=== PATIENT | male | born 1965 | race Caucasian/White ===

== ENCOUNTER 2016-09-19 13:18 | Day surgery (SDC) | payer MEDICARE ==
[~2016-09-19 13:18] MED LIST: ACIDOPHILUS1 EAC5 PO; ACTOS; ACTOS30 MG; ADULT LOW DOSE81 MG; AMLODIPINE BESY10 M1 PO; AMLODIPINE BESY10 MG PO; AMPICILLIN IV; ARTIFICIAL TEAR15 M8 OP; ASPIRIN81 M1 PO; ATENOLOL100 MG PO; AUGMENTIN 875-1 EAC1 PO; AUGMENTIN 875-1 EAC2 PO; AUGMENTIN 875-11 TAB; AURYXIA PO; BACTRIM DS TAB1 EAC2 PO; BENICAR40 MG; CALMOSEPTINE O3.5 G1 TP; CATAPRES0.1 MG PO; CATAPRES0.2 M1 PO; CERTAVITE-ANTI1 EACH PO; COLACE100 MG PO; COREG25 M1 PO; COUMADIN5 M2 PO; CRESTOR10 MG PO; CRESTOR10 MG/TAB PO; CRESTOR5 M1 PO; CULTURELLE1 CAP PO; DEMADEX20 M1 PO; DIFLUCAN100 M1 PO; DULCOLAX10 MG/SUPP RC; DUONEB 2.5-0.5MG3 M1 AERO NEB; EQL FISH OIL 1,1 CA1 PO; FISH OIL 11000 MG/CA PO; FLOMAX0.4 M1 PO; GLUCOPHAGE500 MG PO; HUMALOG100 U/ML; HUMALOG100 UNITS/ SC; HYDROCHLOROTHIA25 MG; HYDROCHLOROTHIA25 MG PO; HYDROCODON-ACE1 EACH PO; IPRAT-ALBUT 0.5-3 ML INH; K-TAB ER20 ME1 PO; LANTUS100 U/ML; LANTUS100 U/ML SC; LANTUS100 UNITS/ SC; LASIX40 M1 PO; LEVEMIR100 UNITS/ SC; LISINOPRIL; LISINOPRIL-HC; LISINOPRIL-HCTZ; LISINOPRIL20 MG; LOPRESSOR100 M1 PO; LOVENOX30 MG/0.3 SQ; METFORMIN HCL500 M2 PO; METFORMIN HCL850 MG; METOPROLOL SUC100 M1 PO; MILK OF MAGNESIA PO; MINOXIDIL10 M1 PO; MINOXIDIL2.5 M1 PO; MIRALAX17 G1 PO; MIRALAX17 G2 PO; MUPIROCIN22 G2 TP; MYVITALIFE1 EACH PO; NAPROSYN500 MG PO; NORCO 5/325 TAB1 TAB PO; NORVASC10 M2 PO; NOVOLOG; NOVOLOG100 UNITS/ SC; NYSTATIN15 G2 TP; NYSTOP60 GM TOP; OMEPRAZOLE20 MG; OMEPRAZOLE40 M2 PO; OMEPRAZOLE40 MG PO; POTASSIUM CHLO20 ME3 PO; PRILOSEC40 M1 PO; PROSOURCE PROT946 ML PO; ROCALTROL0.25 MC1; SODIUM CHLORIDE10 M1 FL; SULBACTAM IV; SULFAMYLON SOL250 M1 ASD; SULFAMYLON60 GM TOP; TYLENOL EXTRA500 M1 PO; TYLENOL325 M1 PO; TYLENOL325 M2 PO; VITAMIN D250000 UNI1 PO; VITORIN; VYTORIN 10/80 T1 TAB; ZOCOR80 MG; [UNRECOGNIZED DRUG - OTHER] IV; [UNRECOGNIZED DRUG - OTHER] MC
[2016-10-24] MEDS ORDERED: ULTRAM50 M1 PO (14:29)
[2016-12-04] MEDS ORDERED: A (09:49)
== END 2016-09-19 17:40 ==
LOC: RADSP 13:18 → SHSC 13:19
PROC: 037C3ZZ Dilation of Left Radial Artery, Percutaneous Approach (ICD-10-PCS; principal; 2016-09-19)
DX: T82.858A Stenosis of other vascular prosthetic devices, implants and grafts, initial encounter (principal); Z88.1 Allergy status to other antibiotic agents; Z88.8 Allergy status to other drugs, medicaments and biological substances; Z79.899 Other long term (current) drug therapy; Y83.8 Other surgical procedures as the cause of abnormal reaction of the patient, or of later complication, without mention of misadventure at the time of the procedure; Z98.890 Other specified postprocedural states
CPT/HCPCS: C1725; C1769; J3010; Q9967